=== PATIENT | male | born 1990 | race Caucasian/White ===

== ENCOUNTER → 2019-11-12 | Outpatient (CLI) | payer OTHER ==
[~2019-11-12] MED LIST: NOHOMEMEDICATIONS
== END ==
LOC: M.LAB 08:52 → EDSTATUS 11-13 13:33 → M.SUR 11-14 13:37
PROVIDERS: ATTEND Orthopaedic Surgery
DX: Z01.812 Encounter for preprocedural laboratory examination (principal); Z20.828 Contact with and (suspected) exposure to other viral communicable diseases

== ENCOUNTER → 2019-11-20 | Outpatient (CLI) | payer OTHER | LOC: M.LAB 16:34 | PROVIDERS: ATTEND Orthopaedic Surgery | DX: Z01.818 Encounter for other preprocedural examination (principal); S83.211A Bucket-handle tear of medial meniscus, current injury, right knee, initial encounter; Z11.59 Encounter for screening for other viral diseases; X58.XXXA Exposure to other specified factors, initial encounter; Y93.89 Activity, other specified; Y92.89 Other specified places as the place of occurrence of the external cause; Y99.8 Other external cause status ==